=== PATIENT | female | born 1980 | race African-American/Black ===

== ENCOUNTER 2020-02-02 18:48 | Emergency (ER) | payer OTHER ==
[2020-02-02 18:57] VITALS: BP 119/81; PULSE 70; TEMP 98.5
[2020-02-02] MEDS ORDERED: KETOROLAC TROMETHAMINE 30 MG/1 ML VIAL IVPUSH ONE (19:22)
--- NOTE | 2020-02-02 19:30 | PDOC ---
Documentation entered by Alla Virgen SCRIBE, acting as scribe for Catarina Peace MD. Catarina Peace MD: This documentation has been prepared by the [email or web address], Alla Virgen SCRIBE, under my direction and personally reviewed by me in its entirety. I confirm that the documentation accurately reflects all work, treatment, procedures, and medical decision making performed by me. History of Present Illness - General Chief Complaint: Pain, Acute Stated Complaint: BACK AND CHEST PAIN Time Seen by Provider: 02/02/20 19:14 History Source: Patient Exam Limitations: No Limitations - History of Present Illness Initial Comments: 02/02/20 19:26 The patient is a 39 year old female with no significant past medical history who presents to the emergency department with 2 days chest and back pain. Patient states yesterday began to feel a sudden onset of chest pain that radiates to her back, states it worsens when she takes a deep breath. Patient reports her father in December due to heart disease, and has been under a lot of stress and anxiety. Since his passing she has been smoking marijuana daily. Voices no other complaints. Denies any other symptoms. PAST MEDICAL HISTORY: no significant history PAST SURGICAL HISTORY: no significant history FAMILY HISTORY: Father recently of heart disease. SOCIAL HISTORY: Pt lives with family and is employed. MEDICATIONS: reviewed ALLERGIES: As per nursing notes General: No fevers or chills, no weakness, no weight loss HEENT: No change in vision. No sore throat. No ear pain CardioVascular: +chest pain. No shortness of breath Respiratory:No cough, or wheezing. Gastrointestinal: no nausea, vomiting, diarrhea or constipation, No rectal bleeding Genitourinary: No dysuria, hematuria, or frequency Musculoskeletal:=back pain. No joint or muscle swelling Neurologic: No headache, vertigo, dizziness or loss of consciousness Psychiatric: nor depression Skin: No rashes or easy bruising Endocrine: no increased thirst or abnormal weight change Allergic: no skin or latex allergy All other systems reviewed and normal General: Well-nourished well-developed individual, no acute distress HEENT: Throat: Normal, tonsils normal, no erythema or exudate Neck: Supple, no meningeal signs, no lymphadenopathy Eyes::Pupils equal reactive and round, extraocular motion intact Chest: Nontender to palpation Cardiac: S1-S2 normal, regular rate and rhythm, no murmurs rubs or gallops Respiratory: Lungs clear to auscultation bilateral Abdomen: Soft, nondistended, normal bowel sounds, nontender to palpation diffusely Extremities: Warm, dry, no cyanosis, clubbing, or edema Skin: No rashes Neuro: Alert and oriented x3, nonfocal exam, grossly intact, normal gait Psych: Normal mood and affect This is a 39-year-old female who comes in complaining of anterior chest and upper back pain x1 day. Patient said she has been under a lot of stress and anxiety since her father little over a month ago. Father of coronary artery disease. Patient otherwise smokes marijuana daily but denies any other risk factors. Work-up initiated including CBC, comp, EKG, cardiac enzymes. Patient given Toradol for the pain. 20:30 Reevaluation patient feels better, work-up unremarkable including a normal EKG and normal blood work as well as a normal chest x-ray.. EKG shows normal sinus rhythm at a rate of [address]-T wave changes normal EKG. Patient's symptoms most likely are contributed to by the social stressors of the recent loss of her father as well as the COVID situation. Patient was told to take anti-inflammatories for the pain and follow-up with her primary care doctor. 02/02/20 20:36 Past History - Medical History Allergies/Adverse Reactions: Allergies Allergy/AdvReac Type Severity Reaction Status Date / Time No Known Allergies Allergy Verified 02/02/20 18:49 Home Medications: Ambulatory Orders NK [No Known Home Medication] 02/02/20 COPD: No CHF: No DVT: No - Psycho-Social/Smoking History Smoking History: Never smoked - Substance Abuse Hx (Audit-C & DAST Scrn) How often the patient has a drink containing alcohol: 2-4 times / month Number of drinks the patient has on a typical day: 1 or 2 How often the patient has six or more drinks on one occasion: Never Score: In Men: 4 or > Positive; In Women: 3 or > Positive: 2 Screen Result (Pos requires Nsg. Audit-10AR): Negative In the last yr the pt used illegal drug/Rx for NonMed reason: Yes Score: Yes response is considered Positive: 1 Screen Result (Positive result requires Nsg. DAST-10): Positive *Physical Exam - Vital Signs Last Vital Signs Temp Pulse Resp BP Pulse Ox 98.5 F 70 18 119/81 100 02/02/20 18:48 02/02/20 18:48 02/02/20 18:48 02/02/20 18:48 02/02/20 18:48 Heart Score/ECG Review - History History: Slightly suspicious - Electrocardiogram EKG: Normal - Age Age: </= 45 - Risk Factors Based on the list above the patient has:: 1-2 risk factors - Troponin Troponin: </= normal limit - Score Heart Score - Total: 1 ED Treatment Course - LABORATORY CBC & Chemistry Diagram: 02/02/20 19:40 02/02/20 19:31 - ADDITIONAL ORDERS Additional order review: Laboratory Results 02/02/20 02/02/20 02/02/20 20:50 19:31 19:31 Sodium 137 Potassium 3.9 Chloride 102 Carbon Dioxide 28 Anion Gap 7 L BUN 15.0 Creatinine 0.8 Est GFR (CKD-EPI)AfAm 109.16 Est GFR (CKD-EPI)NonAf 94.18 Random Glucose 82 Calcium 8.5 Total Bilirubin 0.8 AST 15 ALT 16 Alkaline Phosphatase 49 Creatine Kinase 88 Troponin I < 0.03 Total Protein 6.7 Albumin 3.9 Urine Color Yellow Urine Appearance Clear Urine pH 8.5 H Urine Protein Negative Urine Glucose (UA) Negative Urine Ketones Negative Urine Blood Negative Urine Nitrite Negative Urine Bilirubin Negative Urine Urobilinogen 0.2 Ur Leukocyte Esterase 1+ 02/02/20 19:40 RBC 3.98 MCV 93.8 MCHC 32.7 RDW 12.6 MPV 9.8 Neutrophils % 60.6 Lymphocytes % 26.5 Monocytes % 8.3 Eosinophils % 3.9 Basophils % 0.7 - RADIOLOGY Radiology Studies Ordered: Category Date Time Status CHEST X-RAY PORTABLE* [RAD] Stat Radiology 02/02/20 19:21 Completed - Medications Given in the ED: ED Medications Discontinued Medications Generic Name Dose Route Start Last Admin Trade Name Freq PRN Reason Stop Dose Admin Ketorolac Tromethamine 30 mg 02/02/20 19:22 02/02/20 19:42 Toradol Injection - IVPUSH 02/02/20 19:23 30 mg ONCE ONE Administration Discharge - Discharge Information Problems reviewed: Yes Clinical Impression/Diagnosis: Atypical chest pain Condition: Stable Disposition: HOME - Admission No - Follow up/Referral - Patient Discharge Instructions Additional Instructions: For the pain take ibuprofen 2 to 3 tablets 3 times a day with food do not take on an empty stomach. Your work-up was all normal. Return to the emergency department immediately with ANY new, persistent or worsening symptoms. Continue any medications as previously prescribed by your physician. You should follow up with your primary doctor as soon as possible regarding today's emergency department visit. . Please make sure your doctor reviews the results of your emergency evaluation. Thank you for coming to the Emergency Department today for your care. It was a pleasure to see you today. Please note that your evaluation is INCOMPLETE until you follow-up with your doctor. - Post Discharge Activity
[2020-02-02] MEDS ORDERED: KETOROLAC TROMETHAMINE 30 MG/1 ML VIAL ONE (19:31)
[2020-02-02 20:06] LABS: ALBUMIN 3.9 g/dl (3.4-5.0); BILIRUBIN,TOTAL 0.8 mg/dl (0.2-1); CALCIUM 8.5 mg/dl (8.5-10); CREATININE 0.8 mg/dl (0.55-1.3); POTASSIUM 3.9 mmol/L (3.5-5.1); TOT PROT 6.7 g/dl (6.4-8.2)
[2020-02-02 21:04] LABS: BASO % 0.7 % (0-2.0); EOS % 3.9 % (0-4.5); HEMATOCRIT 37.3 % (32.4-45.2); HEMOGLOBIN 12.2 GM/dL (10.7-15.3); LYMPH % 26.5 % (8-40); MCH 30.7 pg (25.7-33.7); MCHC 32.7 g/dl (32.0-36.0); MEAN CELL VOLUME 93.8 fl (80-96); MEAN PLT VOLUME 9.8 fl (7.5-11.1); MONO % 8.3 % (3.8-10.2); NEUT % 60.6 % (42.8-82.8); PLATELET COUNT 198 K/MM3 (134-434); RBC 3.98 M/mm3 (3.60-5.2); RDW 12.6 % (11.6-15.6); WHITE BLOOD COUNT 8.8 K/mm3 (4.0-10.0)
[2020-02-02 22:27] LABS: EPITHELIAL CELLS FEW /hpf
--- NOTE | 2020-02-03 14:08 | EKG ---
Test Reason : Blood Pressure : / mmHG Vent. Rate : 064 BPM Atrial Rate : 064 BPM P-R Int : 130 ms QRS Dur : 072 ms QT Int : 394 ms P-R-T Axes : 044 014 021 degrees QTc Int : 406 ms NORMAL SINUS RHYTHM NORMAL ECG NO PREVIOUS ECGS AVAILABLE Confirmed by EUGENE MITCHELL MD ([id number]) on 02/03/2020 2:07:34 PM Referred By: MD HAMMER Confirmed By:EUGENE MITCHELL MD
== END 2020-02-02 21:30 | disposition home or self-care (01) ==
LOC: FER 18:48
PROC: 3E033GC Introduction of Other Therapeutic Substance into Peripheral Vein, Percutaneous Approach (ICD-10-PCS; principal; 2020-02-02)
DX: R07.89 Other chest pain (principal)
CPT/HCPCS: 36415; 71045-TC-FY; 80053; 81003; 81015; 82550; 84484; 85025; 93005; 99285-25

== ENCOUNTER 2020-12-14 09:18 | Emergency (ER) | payer OTHER ==
[2020-12-14 09:47] VITALS: TEMP 98.2; BMI 28.8
[2020-12-14] MEDS ORDERED: LIDOCAINE 5% TOPICAL PATCH TP ONE (10:05)
[2020-12-14] MEDS ORDERED: ACETAMINOPHEN 500 MG TABLET (FP) PO ONE (10:05)
[2020-12-14] MEDS ORDERED: KETOROLAC TROMETHAMINE 15 MG/ML VIAL IM ONE (10:06)
[2020-12-14] MEDS ORDERED: ACETAMINOPHEN 325 MG TABLET (FP) ONE (10:15)
[2020-12-14] MEDS ORDERED: LIDOCAINE 5% TOPICAL PATCH ONE (10:16)
[2020-12-14] MEDS ORDERED: KETOROLAC TROMETHAMINE 60 MG/2 ML VIAL ONE (10:16)
[2020-12-14 11:25] VITALS: BP 108/64; PULSE 52
[2020-12-14] MEDS ORDERED: LIDOCAINE PATCH REMOVAL MC ONE (22:00)
== END 2020-12-14 11:25 | disposition home or self-care (01) ==
LOC: JER 09:18
PROC: 3E0233Z Introduction of Anti-inflammatory into Muscle, Percutaneous Approach (ICD-10-PCS; principal; 2020-12-14)
DX: M54.2 Cervicalgia (principal)
CPT/HCPCS: 99284-25